=== PATIENT | male | born 1990 | race Two or more races ===

== ENCOUNTER 2023-12-07 16:54 | Emergency (ER) | payer OTHER ==
[2023-12-07 17:01] VITALS: BP 130/79; PULSE 91; RESP 18; TEMP 98.6; BMI 30.3
[2023-12-07] MEDS ORDERED: IBUPROFEN 600 MG TABLET (FP) PO ONE (17:48)
[2023-12-07] MEDS: IBUPROFEN 600 MG TABLET (FP) PO ONE (17:50)
== END 2023-12-07 18:00 | disposition home or self-care (01) ==
LOC: JERFT 16:54
DX: H60.312 Diffuse otitis externa, left ear (principal); H92.02 Otalgia, left ear
CPT/HCPCS: 99283-25